=== PATIENT | female | born 1960 | race Caucasian/White ===

== ENCOUNTER → 2020-10-12 | Outpatient (CLI) | payer BC | LOC: EXRD 14:30 | DX: N93.9 Abnormal uterine and vaginal bleeding, unspecified (principal); R93.89 Abnormal findings on diagnostic imaging of other specified body structures | CPT/HCPCS: 76856 ==

== ENCOUNTER → 2020-12-07 | Outpatient (CLI) | payer BC | LOC: LAB 10:26 | PROVIDERS: Emergency Medicine | DX: E11.9 Type 2 diabetes mellitus without complications (principal); E24.9 Cushing's syndrome, unspecified; Z79.899 Other long term (current) drug therapy | CPT/HCPCS: 36415; 80053; 83036 ==

== ENCOUNTER → 2021-01-03 | Outpatient (CLI) | payer BC | LOC: WCC 09:00 | PROC: 0JB90ZZ Excision of Buttock Subcutaneous Tissue and Fascia, Open Approach (ICD-10-PCS; principal; 2021-01-03) | DX: E11.628 Type 2 diabetes mellitus with other skin complications (principal); L05.02 Pilonidal sinus with abscess; I10 Essential (primary) hypertension; G47.30 Sleep apnea, unspecified; E11.52 Type 2 diabetes mellitus with diabetic peripheral angiopathy with gangrene; I96 Gangrene, not elsewhere classified; M19.90 Unspecified osteoarthritis, unspecified site; E66.01 Morbid (severe) obesity due to excess calories; Z68.36 Body mass index [BMI] 36.0-36.9, adult; Z79.2 Long term (current) use of antibiotics; Z79.4 Long term (current) use of insulin; Z79.899 Other long term (current) drug therapy | CPT/HCPCS: 87070; 87077; 87186; 87205; G0463 ==

== ENCOUNTER → 2021-01-11 | Outpatient (CLI) | payer BC | LOC: WCC 09:00 | PROC: 0KBP0ZZ Excision of Left Hip Muscle, Open Approach (ICD-10-PCS; principal; 2021-01-11) | PROC: 0KBN0ZZ Excision of Right Hip Muscle, Open Approach (ICD-10-PCS; 2021-01-11) | DX: E11.628 Type 2 diabetes mellitus with other skin complications (principal); L05.02 Pilonidal sinus with abscess; E11.52 Type 2 diabetes mellitus with diabetic peripheral angiopathy with gangrene; I96 Gangrene, not elsewhere classified; G47.30 Sleep apnea, unspecified; M19.90 Unspecified osteoarthritis, unspecified site; E66.01 Morbid (severe) obesity due to excess calories; Z68.36 Body mass index [BMI] 36.0-36.9, adult; Z79.4 Long term (current) use of insulin; Z79.2 Long term (current) use of antibiotics; Z79.899 Other long term (current) drug therapy ==

== ENCOUNTER → 2021-02-03 | Outpatient (CLI) | payer BC | LOC: LAB 11:34 | PROVIDERS: Emergency Medicine | DX: E11.9 Type 2 diabetes mellitus without complications (principal); E24.9 Cushing's syndrome, unspecified; Z79.899 Other long term (current) drug therapy | CPT/HCPCS: 36415; 80053; 83036 ==

== ENCOUNTER → 2021-06-27 | Outpatient (CLI) | payer BC | LOC: LAB 10:23 | PROVIDERS: Emergency Medicine | DX: E11.9 Type 2 diabetes mellitus without complications (principal); E24.3 Ectopic ACTH syndrome; Z79.899 Other long term (current) drug therapy | CPT/HCPCS: 36415; 80053; 80061; 83036; 84439; 84443 ==

== ENCOUNTER → 2021-08-07 | Outpatient (CLI) | payer BC | LOC: LAB 10:09 | PROVIDERS: Emergency Medicine | DX: E11.9 Type 2 diabetes mellitus without complications (principal) | CPT/HCPCS: 36415; 80053 ==

== ENCOUNTER → 2021-09-25 | Outpatient (CLI) | payer BC | LOC: WCC 11:14 | DX: T81.42XA Infection following a procedure, deep incisional surgical site, initial encounter (principal); E11.622 Type 2 diabetes mellitus with other skin ulcer; L98.499 Non-pressure chronic ulcer of skin of other sites with unspecified severity; E24.8 Other Cushing's syndrome; I10 Essential (primary) hypertension; E66.01 Morbid (severe) obesity due to excess calories; Z68.33 Body mass index [BMI] 33.0-33.9, adult; Z79.4 Long term (current) use of insulin | CPT/HCPCS: 87070; 87077; 87186; 87205 ==

== ENCOUNTER → 2021-10-17 | Outpatient (CLI) | payer BC | LOC: WCC 07:38 | DX: T81.42XA Infection following a procedure, deep incisional surgical site, initial encounter (principal); E66.01 Morbid (severe) obesity due to excess calories; E11.622 Type 2 diabetes mellitus with other skin ulcer; E24.8 Other Cushing's syndrome; I10 Essential (primary) hypertension; Z79.4 Long term (current) use of insulin; Z68.33 Body mass index [BMI] 33.0-33.9, adult ==

== ENCOUNTER → 2021-11-03 | Outpatient (CLI) | payer BC | LOC: CT 13:03 | DX: R10.31 Right lower quadrant pain (principal) | CPT/HCPCS: 74150 ==